=== PATIENT | female | born 1960 | race Caucasian/White ===

== ENCOUNTER → 2021-09-21 13:08 | Outpatient (CLI) | payer BC, SELFPAY ==
--- NOTE | ~2021-09-21 | MM_ITS ---
EXAMINATION: MM screening [facility] w [facility] HISTORY: Screening TECHNIQUE: Craniocaudal and mediolateral oblique 3-D tomosynthesis images were obtained and synthetic 2-D images were generated. CAD analysis was submitted and interpreted. COMPARISON: Comparison to multiple prior studies sequentially, with oldest reviewed study dated 07/12. BREAST PARENCHYMAL COMPOSITION: The breasts are heterogeneously dense, which may obscure small masses . FINDINGS: There is no evidence of suspicious mass, calcification, or architectural distortion to sugg est malignancy in either breast. There has been no suspicious interval change. IMPRESSION: 1. No mammographic evidence of malignancy. 2. Recommend routine screening mammography in one year. 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
== END ==
DX: Z12.31 Encounter for screening mammogram for malignant neoplasm of breast (principal)
CPT/HCPCS: 77063; 77067

== ENCOUNTER → 2022-04-07 12:18 | Outpatient (CLI) | payer BC, SELFPAY ==
--- NOTE | ~2022-04-07 | XR_ITS ---
XR hand LT 2V, XR wrist LT 2V 04/07/2022 13:26 Indication: Joint pain Procedure: 2 views left hand and 2 views left wrist Comparison: No prior studies for comparison. Findings: There is polyarticular osteoarthritis involving the triscaphe, first CMC and MCP joints. No fracture or traumatic malalignment. Scaphoid intact. No focal soft tissue abnormality. 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 Reviewed, dictated and finalized at location A. 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
--- NOTE | ~2022-04-07 | XR_ITS ---
XR ankle RT 2V 04/07/2022 13:26 Indication: Right ankle pain Procedure: 4 views right ankle Comparison: No prior studies for comparison. Findings: Ankle mortise intact. No fracture or traumatic malalignment. Talar dome is normal. No signi ficant soft tissue abnormality. There is a degenerative calcaneal enthesophyte at the plantar surface . Impression: 1: No significant bone or joint abnormality. Reviewed, dictated and finalized at location A. Impression: 1: No significant bone or joint abnormality.
--- NOTE | ~2022-04-07 | XR_ITS ---
XR foot LT 2V 04/07/2022 13:26 Indication: Joint pain. Procedure: 2 views left foot Comparison: No prior studies for comparison. Findings: There is polyarticular osteoarthritis involving the first MTP, first IP and fifth MTP joint s. Osteopenia. No acute fracture. Lisfranc joint intact. There is degenerative calcaneal enthesophyte . No significant soft tissue abnormality. No foreign bodies. Impression: 1: Moderate polyarticular osteoarthritis. Reviewed, dictated and finalized at location A. Impression: 1: Moderate polyarticular osteoarthritis.
--- NOTE | ~2022-04-07 | XR_ITS ---
XR sacroiliac joints min 3V 04/07/2022 13:26 Indication: Low back pain Procedure: 3 views of the sacroiliac joints Comparison: No prior studies for comparison. Findings: There is mild symmetric osteoarthritis of the sacroiliac joints. No evidence for erosive ch edith or ankylosis. Sacral foramen are symmetric. Impression: 1: Mild bilateral symmetric degenerative change of the sacroiliac joints. Reviewed, dictated and finalized at location A. Impression: 1: Mild bilateral symmetric degenerative change of the sacroiliac joints.
--- NOTE | ~2022-04-07 | XR_ITS ---
XR hand RT 2V, XR wrist RT 2V 04/07/2022 13:26 Indication: Right hand and wrist pain Procedure: 2 views right hand and 2 views right wrist Comparison: No prior studies for comparison. Findings: There is mild polyarticular osteoarthritis of the right hand and wrist. Degenerative change s are seen at the triscaphe and first CMC joint as well as the first MCP joint. No fracture or trauma tic malalignment. No focal soft tissue abnormality. No erosive changes. Impression: 1: Mild polyarticular osteoarthritis of the right hand and wrist. Reviewed, dictated and finalized at location A. Impression: 1: Mild polyarticular osteoarthritis of the right hand and wrist. Impression: 1: Mild polyarticular osteoarthritis of the right hand and wrist.
--- NOTE | ~2022-04-07 | XR_ITS ---
XR ankle LT 2V 04/07/2022 13:26 Indication: Left ankle pain Procedure: 2 views left ankle Comparison: No prior studies for comparison. Findings: There is anatomic alignment. Ankle mortise intact. No fracture or traumatic malalignment. T here is a degenerative calcaneal enthesophyte at the plantar surface. Mild degenerative change at the talonavicular joint. Impression: 1: Mild talonavicular osteoarthritis. 2: Small degenerative calcaneal enthesophyte at the plantar surface. Reviewed, dictated and finalized at location A. Impression: 1: Mild talonavicular osteoarthritis. 2: Small degenerative calcaneal enthesophyte at the plantar surface.
--- NOTE | ~2022-04-07 | XR_ITS ---
XR foot RT 2V 04/07/2022 13:26 Indication: Joint pain Procedure: 2 views right foot Comparison: No prior studies for comparison. Findings: There is severe osteoarthritis of the first MTP joint. There is mild polyarticular osteoart hritis of the interphalangeal joints. Lisfranc joint intact. Small degenerative calcaneal enthesophyt e at the plantar surface. Lisfranc joint intact. Impression: 1: Polyarticular osteoarthritis, severe at the first MTP joint. Reviewed, dictated and finalized at location A. Impression: 1: Polyarticular osteoarthritis, severe at the first MTP joint.
== END ==
PROVIDERS: PCP Family Medicine; Visit Provider Nurse Practitioner Family
DX: M19.032 Primary osteoarthritis, left wrist (principal); M19.042 Primary osteoarthritis, left hand; M19.031 Primary osteoarthritis, right wrist; M19.041 Primary osteoarthritis, right hand; M19.071 Primary osteoarthritis, right ankle and foot; M19.072 Primary osteoarthritis, left ankle and foot
CPT/HCPCS: 72202; 73100; 73120; 73600; 73620

== ENCOUNTER → 2022-12-15 15:15 | Outpatient (CLI) | payer BC, SELFPAY ==
--- NOTE | ~2022-12-15 | MM_ITS ---
EXAMINATION: MM screening [facility] HISTORY: Screening TECHNIQUE: Craniocaudal and mediolateral oblique 3-D tomosynthesis images were obtained and synthetic 2-D images were generated. CAD analysis was submitted and interpreted. COMPARISON: Comparison to multiple prior studies sequentially, with oldest reviewed study dated 07/12. BREAST PARENCHYMAL COMPOSITION: The breasts are heterogeneously dense, which may obscure small masses FINDINGS: There is no evidence of suspicious mass, calcification, or architectural distortion to sugg est malignancy in either breast. There has been no suspicious interval change. IMPRESSION: 1. No mammographic evidence of malignancy. 2. Recommend routine screening mammography in one year. BI-RADS Category 1: Negative Reviewed, dictated and finalized at location A.
== END ==
DX: Z12.31 Encounter for screening mammogram for malignant neoplasm of breast (principal)
CPT/HCPCS: 77063; 77067

== ENCOUNTER 2024-01-01 13:46 | Outpatient (CLI) | payer BC, SELFPAY ==
--- NOTE | ~2024-01-01 | MM_ITS ---
EXAMINATION: MM screening [facility] HISTORY: Screening mammogram TECHNIQUE: Craniocaudal and mediolateral oblique 3-D tomosynthesis images were obtained and synthetic 2-D images were generated. Bilateral rotated lateral CC views. CAD analysis was submitted and interp reted. COMPARISON: December 15, 2022, September 21, 2021 bilateral screening mammogram examinations BREAST PARENCHYMAL COMPOSITION: The breasts are heterogeneously dense, which may obscure small masses . FINDINGS: There are bilateral mammographic asymmetry is, with suggestion of architectural distortion in the posterior upper inner right breast in particular. Bilateral diagnostic mammography and bilater al breast ultrasound examination are recommended. IMPRESSION: 1. Bilateral mammographic asymmetries, suggestion of architectural distortion on the right 2. Bilateral diagnostic mammography and breast ultrasound examination are recommended BI-RADS Category 0: Incomplete: Needs additional imaging evaluation. Reviewed, dictated and finalized at location A. IMPRESSION: 1. Bilateral mammographic asymmetries, suggestion of architectural distortion o n the right 2. Bilateral diagnostic mammography and breast ultrasound examination are recom mended BI-RADS Category 0: Incomplete: Needs additional imaging evaluation.
== END 2024-01-01 13:47 ==
DX: Z12.31 Encounter for screening mammogram for malignant neoplasm of breast (principal); R92.8 Other abnormal and inconclusive findings on diagnostic imaging of breast
CPT/HCPCS: 77063; 77067

== ENCOUNTER 2024-02-08 09:20 | Outpatient (CLI) | payer BC, SELFPAY ==
--- NOTE | ~2024-02-08 | MMUS_ITS ---
EXAMINATION: MM diagnostic [facility] BI [facility], US breast RT limited HISTORY: Follow-up breast asymmetries TECHNIQUE: Additional 3-D tomosynthesis images of the breasts were performed and synthetic 2-D images were generated. CAD analysis was submitted and interpreted. High resolution Limited right breast ult rasound was performed. COMPARISON: 01/01/2024 BREAST PARENCHYMAL COMPOSITION: Dense: The breasts are heterogeneously dense, which may obscure small masses FINDINGS: MAMMOGRAPHIC FINDINGS: There is a focal area of architectural distortion/asymmetry upper inner quadrant of the right breast posteriorly. There are no suspicious masses, calcifications or architectural distortion in the left b reast to suggest malignancy. ULTRASOUND: Limited right breast ultrasound: At 1:00, 4.5 cm from the nipple, there is an irregular shaped hypoec hoic 4 mm mass with posterior shadowing in no significant internal vascularity. IMPRESSION: 1. Irregular shaped 4 mm right breast mass at 1:00, 4.5 cm from the nipple, corresponding to the foca l asymmetry seen on mammography. 2. Ultrasound-guided right breast biopsy recommended. BI-RADS category 4, suspicious findings. Reviewed, dictated and finalized at location B. IMPRESSION: 1. Irregular shaped 4 mm right breast mass at 1:00, 4.5 cm from the nipple, cor responding to the focal asymmetry seen on mammography. 2. Ultrasound-guided right breast biopsy recommended. BI-RADS category 4, suspicious findings.
== END 2024-02-08 09:21 ==
DX: R92.8 Other abnormal and inconclusive findings on diagnostic imaging of breast (principal)
CPT/HCPCS: 76642; 77062; 77066; G0279

== ENCOUNTER 2024-03-01 10:01 | Outpatient (CLI) | payer BC, SELFPAY ==
--- NOTE | ~2024-03-01 | MMUS_ITS ---
US breast biopsy RT w image, MM post biopsy diagnostic RT EXAMINATION: US GUIDED NEEDLE BIOPSY WITH VACUUM ASSISTANCE DATE: 03/01/2024 13:28 CDT INDICATION: Right breast mass seen on prior examination. Ultrasound-guided core biopsy is requested to evaluate for malignancy. TECHNIQUE AND FINDINGS: The risks and potential benefits of the procedure were discussed with the patient, and written inform ed consent was obtained. After sterile preparation of the right breast, 1% lidocaine was utilized fo r local anesthesia. 1% lidocaine with epinephrine was used for deep anesthesia. A 10G vacuum-assisted biopsy gun needle was advanced through to the outer edge of the region of inter est from a superior approach utilizing sonographic guidance. A total of 5 tissue core samples were o btained through the lesion. An Inrad tissue marker clip was then placed at the biopsy site. Hemostas is was achieved. The patient tolerated procedure well and there was no evidence of immediate complication. The patien t was given verbal instructions partly is from the department. Right breast mammograms to document t issue marker clip placement. The tissue samples were submitted to surgical pathology for histologic a nalysis. IMPRESSION: 1. Successful ultrasound-guided vacuum-assisted biopsy of right breast mass with tissue marker place ment. Please refer to pathology report for histologic analysis. Reviewed, dictated and finalized at location B. IMPRESSION: 1. Successful ultrasound-guided vacuum-assisted biopsy of right breast mass wi th tissue marker placement. Please refer to pathology report for histologic kristina lysis.
== END 2024-03-01 10:02 | disposition home or self-care (01) ==
DX: R92.8 Other abnormal and inconclusive findings on diagnostic imaging of breast (principal)
CPT/HCPCS: 19083; 77065; 88305; A4648